=== PATIENT | female | born 1985 | race Caucasian/White ===

== ENCOUNTER 2020-06-13 15:02 | Outpatient (REF) | payer OTHER, SELFPAY | END 2020-06-13 15:03 | disposition home or self-care (01) | LOC: HO.HMGCLDS 15:02 | PROVIDERS: PCP Internal Medicine; Visit Provider Internal Medicine | DX: Z20.828 Contact with and (suspected) exposure to other viral communicable diseases (principal) | CPT/HCPCS: 36415; 87635 ==

== ENCOUNTER 2020-06-22 15:10 | Outpatient (REF) | payer OTHER, SELFPAY | END 2020-06-22 15:11 | disposition home or self-care (01) | LOC: HO.HMGCLDS 15:10 | PROVIDERS: PCP Internal Medicine; Visit Provider Internal Medicine | DX: Z20.828 Contact with and (suspected) exposure to other viral communicable diseases (principal) | CPT/HCPCS: 87635 ==